=== PATIENT | male | born 1965 | race Caucasian/White ===

== ENCOUNTER 2018-01-30 07:11 | Emergency (ER) | payer OTHER ==
[~2018-01-30] VITALS: Ht 175.3 cm; Wt 83.9 kg
[2018-01-30] MEDS ORDERED: MICARDIS40 MG (07:30)
[2018-01-30] MEDS ORDERED: CRESTOR10 MG (07:31)
== END 2018-01-30 12:48 | disposition home or self-care (01) ==
LOC: ER 07:11
DX: N20.1 Calculus of ureter (principal)

== ENCOUNTER 2019-05-07 07:35 | Emergency (ER) | payer OTHER ==
[~2019-05-07] VITALS: Ht 175.3 cm; Wt 87.1 kg
[~2019-05-07 07:35] MED LIST: CRESTOR10 MG; MICARDIS40 MG
== END 2019-05-07 16:25 | disposition home or self-care (01) ==
LOC: ER 07:35
DX: R10.31 Right lower quadrant pain (principal)